=== PATIENT | female | born 1960 | race Caucasian/White ===

== ENCOUNTER → 2025-01-23 14:41 | Outpatient (CLI) | payer OTHER, SELFPAY ==
--- NOTE | 2025-01-23 14:42 | DI.RAD.S_ITS ---
PROCEDURE: XR KNEE RT 3V INDICATIONS: rt knee pain and swelling TECHNIQUE: 3 views of the knee were acquired. COMPARISON: None. FINDINGS: Bones: No fractures or dislocations. No suspicious bony lesions. Tricompartmental joint space narrowing with associated osteophytosis. Soft tissues: Small joint effusion. No suspicious soft tissue calcifications. IMPRESSION: [id number] tricompartmental osteoarthritis. Kellgren-Andrea Grade 2. Small knee joint effusion. Dictated by: Jhon Brandt M.D. on 01/23/2025 at 17:20 Approved by: Jhon Brandt M.D. on 01/23/2025 at 17:20
[2025-01-23 16:01] LABS: Add Manual Diff / Slide Review NO; Basophils Absolute Auto 100 /uL (0-100); Basophils Percent Auto 1.3 % (0-2); Eosinophils Absolute Auto 300 /uL (0-450); Hematocrit 41.2 % (36-46); Hemoglobin 13.7 g/dL (12.0-16.0); Lymphocytes Absolute Auto 2200 /uL (1100-4500); Lymphocytes Percent Auto 34.2 % (25-40); Mean Corpuscular HGB Conc 33.2 % (30-36); Mean Corpuscular Hemoglobin 29.2 PG (26-34); Mean Corpuscular Volume 88.1 fL (80-100); Monocytes Absolute Auto 500 /uL (0-900); Monocytes Percent Auto 7.7 % (3-14); Neutrophils Absolute Auto 3400 /uL (1500-7000); Neutrophils Percent Auto 51.8 % (50-75); Platelet Count 230 X10^3/uL (150-400); Red Blood Cell Count 4.68 X10^6/uL (4.0-5.2); Red Cell Distribution Width 13.8 % (11.6-14.8); White Blood Cell Count 6.5 X10^3/uL (4.5-11.0)
[2025-01-23 16:05] LABS: Hemoglobin A1C% w Est Avg Glu 5.4 % (4.0-6.0)
[2025-01-23 16:16] LABS: Alanine Aminotransferase 29 IU/L (<35); Albumin 4.8 g/dL (3.5-5.0); Albumin Globulin Ratio 1.7 (1.0-2.8); Alkaline Phosphatase 53 U/L (38-126); Aspartate Aminotransferase 35 IU/L (14-36); BUN Creatinine Ratio 25.6 (6-22); Bilirubin Total 0.6 mg/dL (0.2-1.3); Blood Urea Nitrogen 20 mg/dL (7-17); Calcium 9.7 mg/dL (8.4-10.2); Carbon Dioxide 26 mmol/L (22-32); Chloride 106 mmol/L (98-107); Cholesterol 318 mg/dL (140-199); Estimated Glomerular Filt Rate > 60 mL/min (>60); Globulin 2.8 g/dL (1.7-4.1); Glucose 89 mg/dL (70-99); HDL Cholesterol 70 mg/dL (40-60); HEMOLYSIS < 15 (0-50); LDL Cholesterol Calculated 202 mg/dL (<100); Potassium 3.7 mmol/L (3.4-5.1); Sodium 142 mmol/L (137-145); Total Protein 7.6 g/dL (6.3-8.2); Triglycerides 230 mg/dL (35-150)
[2025-01-23 16:50] LABS: TSH w/ Reflex to FT4 2.42 uIU/mL (0.47-4.68)
== END ==
PROVIDERS: PCP Nurse Practitioner Family; Referring Provider Nurse Practitioner Family; Visit Provider Nurse Practitioner Family
DX: M17.11 Unilateral primary osteoarthritis, right knee (principal); M25.461 Effusion, right knee; R73.03 Prediabetes; E66.3 Overweight; E78.5 Hyperlipidemia, unspecified; M25.561 Pain in right knee
CPT/HCPCS: 36415; 73562; 80053; 80061; 83036; 84443; 85025

== ENCOUNTER 2025-05-13 16:15 | Outpatient (RCR) | payer OTHER, SELFPAY ==
--- NOTE | 2025-03-26 18:20 | PT.OIE ---
Current Diagnoses Pain in right knee (03/26/25) Past Medical History (Last Updated 01/24/25 @ 15:45 by ROB Perales) Allergies BPPV (benign paroxysmal positional vertigo) Chicken pox (~1968) Chronic back pain Fractures (~2010) Hay fever Headache History of breast cancer (~2006) History of prediabetes Hyperlipidemia Left shoulder pain Mumps (~1969) Overweight (BMI 25.0-29.9) Patient new to provider Prediabetes Right knee pain Risk of myocardial infarction or stroke 7.5% or greater in next 10 years Shoulder pain (~2022) Sinusitis Tinnitus of both ears Vertigo Vision disorder Past Surgical History (Last Reviewed 04/03/24 @ 08:05 by DELANEY Kunz) Anesthesia History of ankle surgery (~02/06/11) S/P lumpectomy, right breast (~08/23/07) Visit Care Team Role Provider Type ROB Perales Attending Provider Advanced Pump Assembler Family Provider Primary Care Provider Referring Provider Specialty: Family Practice Address: [address] [place] [address], [id number] Phone: Fax: Email: [email or web address] Physical Therapy Initial Evaluation PT-OP-A Visit Information Start: 03/20/25 16:57 Freq: Status: Active Protocol: Document 03/26/25 13:52 [facility] (Rec: 03/26/25 14:38 [facility] [id number]) Out-Patient Physical Therapy Visit Information Visit Information Visit Type Initial Evaluation Visit Start Time 13:52 Visit Stop Time 14:33 Visit Number 1 Number of FRONT END JAVA DEVELOPER Visits 0 PT-OP-B Current Condition Start: 03/20/25 16:57 Freq: Status: Active Protocol: Document 03/26/25 13:52 [facility] (Rec: 03/26/25 14:38 [facility] [id number]) Current Condition History of Current Condition Onset Date Dec Current Complaints med R knee pain History of Current Pt reports since aug knee started hurting with no known Condition issue. It progressively getting worse. Has arthritis per xray. Has knee pain occasionally before this. It is on the med aspect of knee. Can still kneel w/o pain. worsens: walking, running, beach walking can irritate, pushing inward w/leg to move things, driving for a while, squatting, getting up from ground or stairs (has to brace w/UEs to dec pain). If stays btwn 3-5k steps, swelling and pain is ok but if gets up to 7k then takes meds and ices. 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 tried biking and it went okay. back pain that is constant. Treatment Goals Patient/Caregiver painfree, resume walks(typical is about 3 miles) and Goals hiking with good pace, be able to get up from ground w/ o pushing off or w/pain PT-OP-C Subjective Start: 03/20/25 16:57 Freq: Status: Active Protocol: Document 03/26/25 13:52 [facility] (Rec: 03/26/25 14:38 [id number] Patient Questionnaires Lower Extremity Functional Scale LEFS Score 24 PT-OP-D Balance Start: 03/20/25 16:57 Freq: Status: Active Protocol: Document 03/26/25 13:52 [facility] (Rec: 03/26/25 14:38 [id number] Balance Tests Single Limb Standing Single Limb- Right inc deviation , pain 24 sec Single Limb- Left >30 sec PT-OP-G Mobility & Gait Start: 03/20/25 16:57 Freq: Status: Active Protocol: Document 03/26/25 13:52 [facility] (Rec: 03/26/25 14:38 [id number] OP Gait Assessment Comments Gait Comments Dec stance time RLE, dec knee ext PT-OP-J Posture/Palpation/Skin Start: 03/20/25 16:57 Freq: Status: Active Protocol: Document 03/26/25 13:52 [facility] (Rec: 03/26/25 14:38 [id number] Posture Evaluation Comments Posture Comments dec R knee ext, L rotation of trunk, R iliac crest higher, equal greater trochanter, R >L femur IR, tibia ER PT-OP-K Range of Motion Start: 03/20/25 16:57 Freq: Status: Active Protocol: Document 03/26/25 13:52 [facility] (Rec: 03/26/25 14:38 [id number]) Knee Goniometric Range of Motion Knee Left Flexion Active ( 136 degrees) Hyper-Extension 5 Active Right Flexion Active ( 128 degrees) Extension Active ( 5 degrees) Comments pain both directions PT-OP-L Special Tests Start: 03/20/25 16:57 Freq: Status: Active Protocol: Document 03/26/25 13:52 [facility] (Rec: 03/26/25 14:38 [facility] [id number]) Special Tests Knee Special Tests Tyree Comments R>L thessely Comments positive R apley Comments neg R ligamentous screen Comments lachmans, PCL, varus, valgus neg Quinn Test Comments positive med meniscus SLR Comments WNL B slump Comments neg B joint line Comments positive med jt line tenderness Davey Chondromalacia Comments couldn't test d/t pain w/attempt to do med patellar glide PT-OP-M Strength Start: 03/20/25 16:57 Freq: Status: Active Protocol: Document 03/26/25 13:52 [facility] (Rec: 03/26/25 14:38 [facility] [id number]) Hip Strength Hip Manual Muscle Testing Right Flexion (L2) 3+ Fair+ Extension (S1) 3+ Fair+ Abduction 3+ Fair+ Adduction 4- Good- External Rotation 3+ Fair+ Internal Rotation 3+ Fair+ Comments pain knee flex, ER Left Flexion (L2) 4 Good Extension (S1) 5 Normal Abduction 5 Normal Adduction 5 Normal External Rotation 4 Good Internal Rotation 4 Good Knee Strength Knee Manual Muscle Testing Right Flexion (S2) 4- Good- Extension (L3) 4- Good- Comments pain ext Left Flexion (S2) 5 Normal Extension (L3) 5 Normal Ankle/Foot Strength Ankle and Foot Manual Muscle Testing Right Dorsiflexion (L4) 5 Normal Plantarflexion (S1) 5 Normal Comments 20 heel raises w/more difficulty and pain down rlE and into knee Left Dorsiflexion (L4) 5 Normal Plantarflexion (S1) 5 Normal Comments 20 heel raises PT-OP-Q Treatments Start: 03/20/25 16:57 Freq: Status: Active Protocol: Document 03/26/25 13:52 [facility] (Rec: 03/26/25 14:38 [facility] [id number]) Therapeutic Exercises Sitting Exercises HS Sitting Exercise curl Name Side right Resistance orange band Reps/Minutes 15 Standing Exercises stretch Standing Exercise quad on step Name Side right Reps/Minutes 60 sec sidestep Side bilateral Equipment Used orange band Reps/Minutes 20ft ea Self-Care/Home Management Treatment Education Other Education 9 min: edu how mobility of innominate, hip and ankle can affect knee pain. edu re: testing that meniscus may be injured but most evidence shows PT can help with that. Edu that plan will be painfree exercise to progress strength and mobility. PT-OP-T Assessment and Plan Start: 03/20/25 16:57 Freq: Status: Active Protocol: Document 03/26/25 13:52 [facility] (Rec: 03/26/25 14:38 [facility] [id number]) Physical Therapy Assessment Rehab Potential Rehabilitation Good Potential Evaluation Complexity Number of Personal 3 or More Factors/ Comorbidities Number of Body 4 or More Systems Impaired Clinical Evolving Presentation at Evaluation Impairments Impairments Activity Tolerance,Balance,Edema,Functional Activities, Functional Mobility,Gait,Pain,Posture,ROM,Soft Tissue Mobility,Strength,Transfers Goals strength Short Term Goal (STG Pt will be indep w/HEP ) STG Duration 05/03 Skilled Nursing Goal (LTG) pt will score at least 4+/5 on all BLE MMT in order to allow for greater ease with functional activities. LTG Duration 06/04 ROM Short Term Goal (STG Pt will have full knee ext to at least 0 to allow for ) improved gait mechanics STG Duration 04/26 Tobacco Flavorer Goal (LTG) Pt will have ROM of R knee equal to that of L knee w/o inc pain to allow pt to do ADLs and stairs w/o inc pain LTG Duration 06/04 activity Short Term Goal (STG Pt will be able to get up from the ground w/o pushing ) on something w/o inc pain to allow her to return to her typical job duties w/o inc pain STG Duration 05/05 Tobacco Flavorer Goal (LTG) Pt will report being able to resume 3 mile walks on different terrain w/o inc pain LTG Duration 06/04 Assessment Summary Assessment Pt presents w/R knee pain that started in August w/o specific incident and has gotten worse. pt is typically active with walking and hiking, but has been unable d/ t inc pain in her knee. She does have dec R knee ROM, overall RLE weakness, innominate dysfunction, dec RLE balance, and gait deviations all likely related to her knee pain. She was positive for 3/4 meniscal tests today indicating possible meniscus injury. She would benefit from skilled PT to improve movement mechanics in order to return to typical activities w/o inc pain. Physical Therapy Plan Frequency and Duration Frequency of 2x/Week Treatment Duration of 10 treatment (weeks) Plan of Care Start 03/26/25 Date Plan of Care End 06/04/25 Date Therapeutic Interventions Therapeutic Balance Training,Gait Training,Home Exercise Program, Interventions Joint Mobilizations,Manual Therapy,Neuromuscular Re- education,Patient/Caregiver Education,Self-Care/Home Management,Soft Tissue Mobilization,Therapeutic Activities,Therapeutic Exercises Modalities Cold Pack/Ice Massage,Electric Stimulation,Hot Packs Next Visit Focus/Plan Next Note Type Treatment Note Next Visit Plan innominate mobility, STM to quads, knee mobs, work on knee tracking, review HEP, work on hip rotational strength, balance DL activities initially
--- NOTE | 2025-03-26 18:20 | PT.OPPOC ---
Physical, Occupational & Speech Therapy At [facility] Current Diagnoses Pain in right knee (03/26/25) Visit Care Team Role Provider Type ROB Perales Attending Provider Advanced Guide Visitor Family Provider Primary Care Provider Referring Provider Specialty: Family Practice Address: [address] [place] [address], [address] Phone: Fax: Email: [email or web address] Plan Of Care PT-OP-B Current Condition Start: 03/20/25 16:57 Freq: Status: Active Protocol: Document 03/26/25 13:52 [facility] (Rec: 03/26/25 14:38 [facility] [id number]) Current Condition History of Current Condition Onset Date Aug Current Complaints med R knee pain History of Current Pt reports since dec knee started hurting with no known Condition issue. It progressively getting worse. Has arthritis per xray. Has knee pain occasionally before this. It is on the med aspect of knee. Can still kneel w/o pain. worsens: walking, running, beach walking can irritate, pushing inward w/leg to move things, driving for a while, squatting, getting up from ground or stairs (has to brace w/UEs to dec pain). If stays btwn 3-5k steps, swelling and pain is ok but if gets up to 7k then takes meds and ices. 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 tried biking and it went okay. back pain that is constant. Treatment Goals Patient/Caregiver painfree, resume walks(typical is about 3 miles) and Goals hiking with good pace, be able to get up from ground w/ o pushing off or w/pain PT-OP-T Assessment and Plan Start: 03/20/25 16:57 Freq: Status: Active Protocol: Document 03/26/25 13:52 [facility] (Rec: 03/26/25 14:38 [facility] [id number]) Physical Therapy Assessment Rehab Potential Rehabilitation Good Potential Evaluation Complexity Number of Personal 3 or More Factors/ Comorbidities Number of Body 4 or More Systems Impaired Clinical Evolving Presentation at Evaluation Impairments Impairments Activity Tolerance,Balance,Edema,Functional Activities, Functional Mobility,Gait,Pain,Posture,ROM,Soft Tissue Mobility,Strength,Transfers Goals strength Short Term Goal (STG Pt will be indep w/HEP ) STG Duration 05/03 [facility] Goal (LTG) pt will score at least 4+/5 on all BLE MMT in order to allow for greater ease with functional activities. LTG Duration 06/04 ROM Short Term Goal (STG Pt will have full knee ext to at least 0 to allow for ) improved gait mechanics STG Duration 04/26 [facility] Goal (LTG) Pt will have ROM of R knee equal to that of L knee w/o inc pain to allow pt to do ADLs and stairs w/o inc pain LTG Duration 06/04 activity Short Term Goal (STG Pt will be able to get up from the ground w/o pushing ) on something w/o inc pain to allow her to return to her typical job duties w/o inc pain STG Duration 05/05 [facility] Goal (LTG) Pt will report being able to resume 3 mile walks on different terrain w/o inc pain LTG Duration 06/04 Assessment Summary Assessment Pt presents w/R knee pain that started in August w/o specific incident and has gotten worse. pt is typically active with walking and hiking, but has been unable d/ t inc pain in her knee. She does have dec R knee ROM, overall RLE weakness, innominate dysfunction, dec RLE balance, and gait deviations all likely related to her knee pain. She was positive for 3/4 meniscal tests today indicating possible meniscus injury. She would benefit from skilled PT to improve movement mechanics in order to return to typical activities w/o inc pain. Physical Therapy Plan Frequency and Duration Frequency of 2x/Week Treatment Duration of 10 treatment (weeks) Plan of Care Start 03/26/25 Date Plan of Care End 06/04/25 Date Therapeutic Interventions Therapeutic Balance Training,Gait Training,Home Exercise Program, Interventions Joint Mobilizations,Manual Therapy,Neuromuscular Re- education,Patient/Caregiver Education,Self-Care/Home Management,Soft Tissue Mobilization,Therapeutic Activities,Therapeutic Exercises Modalities Cold Pack/Ice Massage,Electric Stimulation,Hot Packs Next Visit Focus/Plan Next Note Type Treatment Note Next Visit Plan innominate mobility, STM to quads, knee mobs, work on knee tracking, review HEP, work on hip rotational strength, balance DL activities initially Plan of Care Dates Plan of Care Start Date 03/26/25 Plan of Care End Date 06/04/25 Electronically Signed by: Lisa Ohara, PT 03/26/25 5118 If you are in agreement with this Plan of Care, please return a signed and dated copy. I have reviewed this Plan of Care and certify that the skilled therapy services above are required to meet the patient?s needs. Physician Signature Date Printed Name and Credentials Clinical Instructor Signature Printed Name and Credentials
--- NOTE | 2025-04-02 17:06 | PT.OTN ---
Current Diagnoses Pain in right knee (04/02/25) Physical Therapy Treatment Note PT-OP-A Visit Information Start: 03/20/25 16:57 Freq: Status: Active Protocol: Document 04/02/25 10:55 [facility] (Rec: 04/02/25 17:06 [facility] Laptop) Out-Patient Physical Therapy Visit Information Visit Information Visit Type Treatment Note Visit Start Time 10:55 Visit Stop Time 11:35 Visit Number 2 Number of CAREGIVER ASSISTED LIVING Visits 1 Evaluation Information Evaluation Date 03/26/25 Precautions Precautions latex allergy PT-OP-B Current Condition Start: 03/20/25 16:57 Freq: Status: Active Protocol: Document 03/26/25 13:52 [facility] (Rec: 03/26/25 14:38 [facility] [id number]) Current Condition History of Current Condition Onset Date Aug Current Complaints med R knee pain History of Current Pt reports since aug knee started hurting with no known Condition issue. It progressively getting worse. Has arthritis per xray. Has knee pain occasionally before this. It is on the med aspect of knee. Can still kneel w/o pain. worsens: walking, running, beach walking can irritate, pushing inward w/leg to move things, driving for a while, squatting, getting up from ground or stairs (has to brace w/UEs to dec pain). If stays btwn 3-5k steps, swelling and pain is ok but if gets up to 7k then takes meds and ices. 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 tried biking and it went okay. back pain that is constant. Treatment Goals Patient/Caregiver painfree, resume walks(typical is about 3 miles) and Goals hiking with good pace, be able to get up from ground w/ o pushing off or w/pain PT-OP-C Subjective Start: 03/20/25 16:57 Freq: Status: Active Protocol: Document 04/02/25 10:55 [facility] (Rec: 04/02/25 17:06 [facility] Laptop) OP-PT Subjective Patient Comments Patient Comments Smita reports 2/10 R knee pain currently and most of the time. She's been doing home ex's daily except for when she did easier hike at [email or web address] and got 14,000 steps. She used trekking poles at times and afterwards used ice, red light wrap and a device that compresses around the knee with air. Her knee hurts with some gardening activities and sometimes getting into quad stretch. She 's not sure she's doing seated curls correctly. PT-OP-D Balance Start: 03/20/25 16:57 Freq: Status: Active Protocol: Document 03/26/25 13:52 [facility] (Rec: 03/26/25 14:38 [facility] [id number]) Balance Tests Single Limb Standing Single Limb- Right inc deviation , pain 24 sec Single Limb- Left >30 sec PT-OP-G Mobility & Gait Start: 03/20/25 16:57 Freq: Status: Active Protocol: Document 03/26/25 13:52 [facility] (Rec: 03/26/25 14:38 [id number] OP Gait Assessment Comments Gait Comments Dec stance time RLE, dec knee ext PT-OP-J Posture/Palpation/Skin Start: 03/20/25 16:57 Freq: Status: Active Protocol: Document 03/26/25 13:52 [facility] (Rec: 03/26/25 14:38 [facility] [id number]) Posture Evaluation Comments Posture Comments dec R knee ext, L rotation of trunk, R iliac crest higher, equal greater trochanter, R >L femur IR, tibia ER PT-OP-K Range of Motion Start: 03/20/25 16:57 Freq: Status: Active Protocol: Document 03/26/25 13:52 [facility] (Rec: 03/26/25 14:38 [facility] [id number]) Knee Goniometric Range of Motion Knee Left Flexion Active ( 136 degrees) Hyper-Extension 5 Active Right Flexion Active ( 128 degrees) Extension Active ( 5 degrees) Comments pain both directions PT-OP-L Special Tests Start: 03/20/25 16:57 Freq: Status: Active Protocol: Document 03/26/25 13:52 [facility] (Rec: 03/26/25 14:38 [facility] [id number]) Special Tests Knee Special Tests Tyree Comments R>L thessely Comments positive R apley Comments neg R ligamentous screen Comments lachmans, PCL, varus, valgus neg Quinn Test Comments positive med meniscus SLR Comments WNL B slump Comments neg B joint line Comments positive med jt line tenderness Davey Chondromalacia Comments couldn't test d/t pain w/attempt to do med patellar glide PT-OP-M Strength Start: 03/20/25 16:57 Freq: Status: Active Protocol: Document 03/26/25 13:52 [facility] (Rec: 03/26/25 14:38 [facility] [id number]) Hip Strength Hip Manual Muscle Testing Right Flexion (L2) 3+ Fair+ Extension (S1) 3+ Fair+ Abduction 3+ Fair+ Adduction 4- Good- External Rotation 3+ Fair+ Internal Rotation 3+ Fair+ Comments pain knee flex, ER Left Flexion (L2) 4 Good Extension (S1) 5 Normal Abduction 5 Normal Adduction 5 Normal External Rotation 4 Good Internal Rotation 4 Good Knee Strength Knee Manual Muscle Testing Right Flexion (S2) 4- Good- Extension (L3) 4- Good- Comments pain ext Left Flexion (S2) 5 Normal Extension (L3) 5 Normal Ankle/Foot Strength Ankle and Foot Manual Muscle Testing Right Dorsiflexion (L4) 5 Normal Plantarflexion (S1) 5 Normal Comments 20 heel raises w/more difficulty and pain down rlE and into knee Left Dorsiflexion (L4) 5 Normal Plantarflexion (S1) 5 Normal Comments 20 heel raises PT-OP-Q Treatments Start: 03/20/25 16:57 Freq: Status: Active Protocol: Document 04/02/25 10:55 [facility] (Rec: 04/02/25 17:06 [facility] Laptop) Therapeutic Exercises Sitting Exercises HS Sitting Exercise curl Name Side right Resistance orange band Reps/Minutes 15 Comments cues for LLE 90/90, slower pacing R Standing Exercises TKE Standing Exercise terminal knee extension Name Side right Resistance Lvl 2 orange Equipment Used anchored at training stairs Reps/Minutes x5, 10 x5 sec hold (2 breathcyles) Comments 2/10 pain increases to 3-4/10 stretch Standing Exercise quad on step Name Side right Equipment Used edu for strap or towel when not in pants Reps/Minutes 60 sec Comments cues for maintaining LE alignment sidestep Side bilateral Equipment Used orange band around ankles Reps/Minutes 2 x 15ft ea Comments cues for smaller step and slower pacing Therapeutic Activity Therapeutic Activity Sleeping Ergonomics Name R knee pain with sidelying Comments Pt demos staggered flexed legs without pillow supports; reports tried a pillow once which may have been too thick. Edu for pillow supports extending between knees and ankles with positive feedback response, painfree. Also edu to consider side support for spinal alignment - HO given. Gardening Name Pt reports R knee pain weeding Comments -Pt kurt asymmetrical squat lacking hip hinge for pulling weeds and twisting at trunk to set aside. Edu to pt for using knee pad and weeding in tall kneel. Discussed placing pad in visible and accessible area. -Pt samuelos using long-handles standing thin film technician involving placing one leg on and pushing down, and states she switched to L leg when needed but still painful. Edu to pt to try to use both legs on ground for now, and pt agrees partner can use this tool instead. Manual Therapy Treatment Consent Patient gave verbal Yes consent for manual treatment Soft Tissue Mobilization R quads Body Location Quads, ITB Mobilization Type Rolling Intensity/Depth Moderate Body Position Hooklying Comments palpable tension throughout, lateral>medial. Verbal edu for self-STM w/ rolling pin. Joint Mobilizations R patella Direction sup<>inf, med<>lat Grade II Body Position Supine Self-Care/Home Management Treatment Education Patient Education Body Mechanics,Home Exercise Program,Joint Protection, Pain Management Other Education Brief edu to pt regarding option to adjust trekking pole height as needed for inclines/declines - 1 min. PT-OP-T Assessment and Plan Start: 03/20/25 16:57 Freq: Status: Active Protocol: Document 04/02/25 10:55 [facility] (Rec: 04/02/25 17:06 [facility] Laptop) Physical Therapy Assessment Goals strength Short Term Goal (STG Pt will be indep w/HEP ) STG Duration 05/03 Longterm Goal (LTG) pt will score at least 4+/5 on all BLE MMT in order to allow for greater ease with functional activities. LTG Duration 06/04 ROM Short Term Goal (STG Pt will have full knee ext to at least 0 to allow for ) improved gait mechanics STG Duration 04/26 Longterm Goal (LTG) Pt will have ROM of R knee equal to that of L knee w/o inc pain to allow pt to do ADLs and stairs w/o inc pain LTG Duration 06/04 activity Short Term Goal (STG Pt will be able to get up from the ground w/o pushing ) on something w/o inc pain to allow her to return to her typical job duties w/o inc pain STG Duration 05/05 Longterm Goal (LTG) Pt will report being able to resume 3 mile walks on different terrain w/o inc pain LTG Duration 06/04 Assessment Summary Assessment Smita's R knee pain increases from 2 start of session to 3-410 with R TKE Lvl 2, which improves to 2/10 end of session following manual therapy. 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 I/s in sidelying for sleep with pillow supports painfree, HO given. Cues needed to avoid abducting flexed knee for quad stretch which she confirms causes pain at times. Palpable tension to R quads improves with manual therapy and she is edu to use rolling pin for self-STM and continue icing as needed. Emphasis on painfree range with HEP review.
--- NOTE | 2025-04-09 14:03 | PT.OTN ---
Current Diagnoses Pain in right knee (04/09/25) Physical Therapy Treatment Note PT OP: Lower Back/Lower Extremity Start: 04/09/25 13:07 Freq: Status: Active Protocol: Document 04/09/25 13:07 [facility] (Rec: 04/09/25 14:03 [facility] [id number]) Out-Patient Physical Therapy Visit Information Visit Information Visit Type Treatment Note Visit Start Time 13:05 Visit Stop Time 13:45 Visit Number 3 Number of CROP GRAIN OR LIVESTOCK FARM MANAGER Visits 0 Progress Note Due 04/25/25 Precautions Precautions latex allergy OP-PT Subjective Patient Comments Patient Comments Pt reports knee feels tired after exercises Therapeutic Exercises Supine Exercises bridge Supine Exercise Name SL Side bilateral Reps/Minutes 8 Comments cues segmental slow up/down core Supine Exercise Name DL flex isometric w/DF Side bilateral Reps/Minutes 30 sec Sidelying Exercises reverse clamshell Side bilateral Resistance orange band Reps/Minutes 12 clamshell Side bilateral Equipment Used orange band Reps/Minutes 12 Comments cues not to roll Sitting Exercises HS Sitting Exercise curl Name Side bilateral Resistance orange band Reps/Minutes 15 Comments cues for LLE 90/90, slower pacing R Standing Exercises sit to stand Side bilateral Equipment Used orange band at knees Reps/Minutes 15 Comments cues taps tap abd Side right Resistance orange Reps/Minutes 6 Comments stopped d/t pain TKE Standing Exercise terminal knee extension Name Side right Resistance Lvl 2 orange Reps/Minutes 5 Comments stopped d/t pain stretch Standing Exercise quad hand grab Name Side right Reps/Minutes 30 sec sidestep Side bilateral Equipment Used orange band around ankles Reps/Minutes 2 x 10ft ea Comments min cues needed Manual Therapy Treatment Consent Patient gave verbal Yes consent for manual treatment Soft Tissue Mobilization HS Body Location R med Intensity/Depth Moderate Comments rolling and cupping w/active HS stretch ITB Body Location R Mobilization Type Rolling Intensity/Depth Moderate R quads Body Location R Mobilization Type Rolling Intensity/Depth Moderate Comments quads rolling and med knee cupping w/flex/ext Joint Mobilizations tibiofemoral Comments AP tibia c/r and AP femur c/r R patella Direction sup<>inf, med<>lat Grade III Body Position Supine Physical Therapy Assessment Goals strength Short Term Goal (STG Pt will be indep w/HEP ) STG Duration 05/03 Sales Representative Consultant Goal (LTG) pt will score at least 4+/5 on all BLE MMT in order to allow for greater ease with functional activities. LTG Duration 06/04 ROM Short Term Goal (STG Pt will have full knee ext to at least 0 to allow for ) improved gait mechanics STG Duration 04/26 Snf Goal (LTG) Pt will have ROM of R knee equal to that of L knee w/o inc pain to allow pt to do ADLs and stairs w/o inc pain LTG Duration 06/04 activity Short Term Goal (STG Pt will be able to get up from the ground w/o pushing ) on something w/o inc pain to allow her to return to her typical job duties w/o inc pain STG Duration 05/05 Snf Goal (LTG) Pt will report being able to resume 3 mile walks on different terrain w/o inc pain LTG Duration 06/04 Assessment Summary Assessment Pt did well with exercises w/o inc pain w/exercises except TKE and abd which were stopped. She did well with manual w/improved knee ext after. Physical Therapy Plan Frequency and Duration Frequency of 2x/Week Treatment Duration of 10 treatment (weeks) Plan of Care Start 03/26/25 Date Plan of Care End 06/04/25 Date Next Visit Focus/Plan Next Note Type Treatment Note Next Visit Plan innominate mobility, STM to quads, knee mobs, work on knee tracking, review HEP, work on hip rotational strength, balance DL activities initially
--- NOTE | 2025-04-16 12:34 | PT.OTN ---
Current Diagnoses Pain in right knee (04/16/25) Physical Therapy Treatment Note PT OP: Lower Back/Lower Extremity Start: 04/09/25 13:07 Freq: Status: Active Protocol: Document 04/16/25 11:32 [facility] (Rec: 04/16/25 12:34 [facility] [id number]) Therapeutic Exercises Supine Exercises quad set Side right Equipment Used rolled towel Reps/Minutes 5 sec x10 bridge Supine Exercise Name SL w/opp LE straight Side bilateral Reps/Minutes 8 Comments cues segmental slow up/down Sidelying Exercises reverse clamshell Side bilateral Resistance robinson band Reps/Minutes 12 Comments cues for alignment and no pelvis roll clamshell Side bilateral Equipment Used robinson band Reps/Minutes 12 Comments no cues needed today except initially Standing Exercises sit to stand Side bilateral Equipment Used [place]inson band at knees Reps/Minutes 15 Comments cues taps tap and foot/knee alignment sidestep Standing Exercise in mini squat Name Side bilateral Equipment Used robinson band around knees Reps/Minutes 2 x 10ft ea Comments min cues for knee over ankle Manual Therapy Treatment Consent Patient gave verbal Yes consent for manual treatment Soft Tissue Mobilization calf Body Location R Mobilization Type Rolling Intensity/Depth Moderate R quads Body Location R patellar tendon Mobilization Type Rolling Joint Mobilizations hip Comments R hip on axis c/r and inf glide c/r innominate Comments caudal R w/LTR, ER c/r, abd c/r sacrum Comments caudal w/LTR tibfib Comments AP fib proximal w/APs tibiofemoral Comments AP tibia c/r and AP femur c/r R patella Direction sup<>inf, med<>lat Grade III Body Position Supine Physical Therapy Assessment Goals strength Short Term Goal (STG Pt will be indep w/HEP ) STG Duration 05/03 Long-Term Goal (LTG) pt will score at least 4+/5 on all BLE MMT in order to allow for greater ease with functional activities. LTG Duration 06/04 ROM Short Term Goal (STG Pt will have full knee ext to at least 0 to allow for ) improved gait mechanics STG Duration 04/26 Long-Term Goal (LTG) Pt will have ROM of R knee equal to that of L knee w/o inc pain to allow pt to do ADLs and stairs w/o inc pain LTG Duration 06/04 activity Short Term Goal (STG Pt will be able to get up from the ground w/o pushing ) on something w/o inc pain to allow her to return to her typical job duties w/o inc pain STG Duration 05/05 Long-Term Goal (LTG) Pt will report being able to resume 3 mile walks on different terrain w/o inc pain LTG Duration 06/04 Assessment Summary Assessment no inc pain with exercises. Improved hip abd and ER w/ less hard end feel with manual care. Physical Therapy Plan Frequency and Duration Frequency of 2x/Week Treatment Duration of 10 treatment (weeks) Plan of Care Start 03/26/25 Date Plan of Care End 06/04/25 Date Next Visit Focus/Plan Next Note Type Treatment Note Next Visit Plan innominate mobility, STM to quads, knee mobs, work on knee tracking, review HEP, work on hip rotational strength, balance DL activities initially
--- NOTE | 2025-04-23 13:00 | PT.OTN ---
Current Diagnoses Pain in right knee (04/23/25) Physical Therapy Treatment Note PT OP: Lower Back/Lower Extremity Start: 04/09/25 13:07 Freq: Status: Active Protocol: Document 04/23/25 10:50 [facility] (Rec: 04/23/25 11:39 [facility]) Out-Patient Physical Therapy Visit Information Visit Information Visit Type Treatment Note Visit Start Time 10:50 Visit Stop Time 11:32 Visit Number 5 Number of MAINTAINER PLANT Visits 1 Progress Note Due 04/25/25 Precautions Precautions latex allergy OP-PT Subjective Patient Comments Patient Comments Pt reports R knee pain 2-11/11. Has added pillow supports with sleeping and that has helped. Therapeutic Exercises Supine Exercises hip flexor stretch Supine Exercise Name modified Tyree position - added to HEP Side right Equipment Used hi-lo table Reps/Minutes 60 min w/ STM to R quad Comments painfree, observably improved ROM, positive feedback response quad set Side right Equipment Used rolled towel, 1/2 foam, full foam Reps/Minutes 5 sec x10>full foam roller 3 sec x10 Comments pain along medial jt line and inferior to patella, improves w/full foam 3SH bridge Supine Exercise Name SL w/opp LE straight Side bilateral Reps/Minutes x10, x5 Comments cues segmental slow up/down, breath core Supine Exercise Name DL flex isometric w/DF: straight and diagonal Side bilateral Reps/Minutes 2 x30 sec ea Comments painfree; vc breath Sitting Exercises Hamstring Stretch Side bilateral Reps/Minutes 2x30s ea Standing Exercises sit to stand Side bilateral Equipment Used [place] band at knees Reps/Minutes 15 Comments cues taps tap and foot/knee alignment stretch Standing Exercise 1. quad hand grab 2. DL calf stretch on [place] Name Side right Reps/Minutes 1. 30 sec 2. 60 sec Manual Therapy Treatment Consent Patient gave verbal Yes consent for manual treatment Soft Tissue Mobilization HS Body Location R med Intensity/Depth Moderate Comments rolling w/active and passive HS stretch ITB Body Location R Mobilization Type Cross-Friction,Rolling Intensity/Depth Moderate Comments circular strokes distal to proximal R quads Body Location Quads, patellar tendon Mobilization Type Rolling Intensity/Depth Moderate Joint Mobilizations R patella Direction sup<>inf, med<>lat Grade II Body Position Supine Neuro Re-Education Treatment Balance Activities Tilt Board Details DL balance Comments a/p: balance, weightshifting x10, cues for gluteal activaiton and upright posture with posterior weightshift m/l: balance, weightshifts dc'd d/t pt c/o R knee pain along medial jt line. BOSU Comments Dome: DL balance, mini squats AUDIOVISUAL PRODUCTION SPECIALIST prn x6; perturbations to body in all directions at pelvis/shoulders Flat: balance, mini squats AUDIOVISUAL PRODUCTION SPECIALIST prn x6, perturbations to BOSU Physical Therapy Assessment Goals strength Short Term Goal (STG Pt will be indep w/HEP ) STG Duration 05/03 Bag Inspector Goal (LTG) pt will score at least 4+/5 on all BLE MMT in order to allow for greater ease with functional activities. LTG Duration 06/04 ROM Short Term Goal (STG Pt will have full knee ext to at least 0 to allow for ) improved gait mechanics STG Duration 04/26 Bag Inspector Goal (LTG) Pt will have ROM of R knee equal to that of L knee w/o inc pain to allow pt to do ADLs and stairs w/o inc pain LTG Duration 06/04 activity Short Term Goal (STG Pt will be able to get up from the ground w/o pushing ) on something w/o inc pain to allow her to return to her typical job duties w/o inc pain STG Duration 05/05 Nursing Home Goal (LTG) Pt will report being able to resume 3 mile walks on different terrain w/o inc pain LTG Duration 06/04 Assessment Summary Assessment Smita presents with baseline 2-3/10 R knee pain which is unchanged end of session. She reports forgetting to perform quad sets and has increased R knee pain performing which improves slightly with modification from towel roll to full foam roller. Double leg balance activities are initiated which she tolerates in anteroposterior stance of neutral base of support, but mediolateral weight shifting on tilt board is discontinued due to sharp pain in R knee along medial joint line while R lower extremity alignment is maintained, which resolves with cessation of activity. Physical Therapy Plan Frequency and Duration Frequency of 2x/Week Treatment Duration of 10 treatment (weeks) Plan of Care Start 03/26/25 Date Plan of Care End 06/04/25 Date Next Visit Focus/Plan Next Note Type Treatment Note Next Visit Plan innominate mobility, STM to quads, knee mobs, work on knee tracking, review HEP, work on hip rotational strength, balance DL activities initially
--- NOTE | 2025-04-30 18:23 | PT.OPPN ---
Current Diagnoses Pain in right knee (04/30/25) Physical Therapy Progress Note PT OP: Lower Back/Lower Extremity Start: 04/09/25 13:07 Freq: Status: Active Protocol: Document 04/30/25 16:12 [facility] (Rec: 04/30/25 18:22 [facility] [id number]) Out-Patient Physical Therapy Visit Information Visit Information Visit Type Progress Note Visit Start Time 16:20 Visit Stop Time 17:00 Visit Number 6 Number of PSYCHOLOGY CLINICIAN Visits 0 Progress Note Due 05/30/25 Precautions Precautions latex allergy OP-PT Subjective Patient Comments Patient Comments Pt reports compliance w/exercises. Still med knee pain and hard to straigthen Knee Goniometric Range of Motion Knee Measured in Degrees Right Flexion Active ( 131 degrees) Extension Active ( 3 degrees) Comments pain both directions Hip Strength Hip Manual Muscle Testing Right Flexion (L2) 4- Good- Extension (S1) 4+ Good+ Abduction 4 Good Adduction 4 Good External Rotation 4- Good- Internal Rotation 4 Good Comments pain add, ER Left Flexion (L2) 5 Normal Extension (S1) 5 Normal Abduction 5 Normal Adduction 5 Normal External Rotation 5 Normal Internal Rotation 5 Normal Knee Strength Knee Manual Muscle Testing Right Flexion (S2) 5 Normal Extension (L3) 4- Good- Comments pain ext Left Flexion (S2) 5 Normal Extension (L3) 5 Normal Ankle/Foot Strength Ankle and Foot Manual Muscle Testing Right Dorsiflexion (L4) 5 Normal Plantarflexion (S1) 5 Normal Comments 20 heel raises w/pain med knee Left Dorsiflexion (L4) 5 Normal Plantarflexion (S1) 5 Normal Comments 20 heel raises Therapeutic Exercises Standing Exercises lunge Side bilateral Equipment Used [place] band around knees Reps/Minutes 10 ea Comments cues knee tracking lat step up Side right Equipment Used 4 in Reps/Minutes 6 stopped d/t pain hip hike Side right Reps/Minutes 8 Comments stopped d/t pain step up Standing Exercise to SL Name Side right Equipment Used 8 in Reps/Minutes 10 Comments cues control down lat lunge Side right Reps/Minutes 6 Comments cues alignment-stopped d/t pain Other Exercises self mob Other Exercise Name 1. fib PA 2. femur PA Side right Reps/Minutes 10 ea Comments quadruped-cues comfortable range Manual Therapy Treatment Consent Patient gave verbal Yes consent for manual treatment Joint Mobilizations tibiofemoral Comments AP tibia and femur c/r; med glide tibia and lat glide femur c/r R patella Direction sup<>inf, med<>lat Grade II Body Position Supine Physical Therapy Assessment Goals strength Short Term Goal (STG Pt will be indep w/HEP ) STG Duration achieved advancing as able Optometry Doctor Goal (LTG) pt will score at least 4+/5 on all BLE MMT in order to allow for greater ease with functional activities. 04/30-improving LTG Duration 06/04 ROM Short Term Goal (STG Pt will have full knee ext to at least 0 to allow for ) improved gait mechanics 04/30-no major change STG Duration 04/26 Optometry Doctor Goal (LTG) Pt will have ROM of R knee equal to that of L knee w/o inc pain to allow pt to do ADLs and stairs w/o inc pain LTG Duration 06/04 activity Short Term Goal (STG Pt will be able to get up from the ground w/o pushing ) on something w/o inc pain to allow her to return to her typical job duties w/o inc pain 04/30-no change STG Duration 05/05 Group Home Goal (LTG) Pt will report being able to resume 3 mile walks on different terrain w/o inc pain 04/30-about 1-2 miles w/moderate pain LTG Duration 06/04 Assessment Summary Assessment Pt is making progrss with strength but cont to have pain in knee medially. She does still have swelling and would benefit from cont skilled PT but may benefit from further imaging or seeing an orthopedic as she does still have significant pain. Physical Therapy Plan Frequency and Duration Frequency of 2x/Week Treatment Duration of 10 treatment (weeks) Plan of Care Start 03/26/25 Date Plan of Care End 06/04/25 Date Therapeutic Interventions Therapeutic Balance Training,Gait Training,Home Exercise Program, Interventions Joint Mobilizations,Manual Therapy,Neuromuscular Re- education,Patient/Caregiver Education,Self-Care/Home Management,Soft Tissue Mobilization,Therapeutic Activities,Therapeutic Exercises Modalities Cold Pack/Ice Massage,Electric Stimulation,Hot Packs Next Visit Focus/Plan Next Note Type Treatment Note Next Visit Plan innominate mobility, STM to quads, knee mobs, work on knee tracking, review HEP, work on hip rotational strength, balance DL activities initially
--- NOTE | 2025-05-13 17:32 | PT.OTN ---
Current Diagnoses Pain in right knee (05/13/25) Physical Therapy Treatment Note PT OP: Lower Back/Lower Extremity Start: 04/09/25 13:07 Freq: Status: Active Protocol: Document 05/13/25 16:15 [facility] (Rec: 05/13/25 17:04 [facility] [id number]) Out-Patient Physical Therapy Visit Information Visit Information Visit Type Treatment Note Visit Start Time 16:20 Visit Stop Time 17:00 Visit Number 7 Number of GARDENER FLORIST Visits 0 Progress Note Due 05/30/25 Precautions Precautions latex allergy OP-PT Subjective Patient Comments Patient Comments Pt reports compliance w/exercises, notes she doesn't know if PT sessions make changes Therapeutic Exercises Supine Exercises SAQ Side right Reps/Minutes 2x10 HS curl Supine Exercise Name bridge on ball w/HS curl Side bilateral Reps/Minutes 10 bridge Supine Exercise Name SL w/opp LE straight Side bilateral Reps/Minutes x3 B no band, 5x R SL w/unga band at hips Comments cues control core Supine Exercise Name DL flex isometric w/DF: Side bilateral Reps/Minutes x30 sec ea Comments cues DF Sidelying Exercises reverse clamshell Side bilateral Resistance unga band Reps/Minutes 8 Comments cues for alignment and no pelvis roll clamshell Side right Equipment Used unga band Reps/Minutes 4 Comments no cues needed today except initially Sitting Exercises HS Sitting Exercise curl Name Side bilateral Resistance unga band Reps/Minutes 5 Comments no cues needed Standing Exercises clamshell Standing Exercise hands on wall Name Side bilateral Equipment Used unga Reps/Minutes 10 Comments cues set up lunge Side bilateral Equipment Used unga band around knees Reps/Minutes 10 ea Comments cues knee tracking sit to stand Standing Exercise squat Name Side bilateral Equipment Used [place] band at knees Reps/Minutes 10 Comments cues inc range stretch Standing Exercise quad Name Side right Reps/Minutes 60 sec sidestep Standing Exercise in mini squat Name Side bilateral Equipment Used [place]ga band around feet Reps/Minutes x 10ft ea Comments min cues toes fwd Manual Therapy Treatment Consent Patient gave verbal Yes consent for manual treatment Soft Tissue Mobilization calf Body Location R Mobilization Type Rolling Intensity/Depth Moderate HS Body Location R med Intensity/Depth Moderate Comments rolling w/active and passive HS stretch Joint Mobilizations tibfib Comments AP fib tibiofemoral Comments AP, distraction and PA Physical Therapy Assessment Goals strength Short Term Goal (STG Pt will be indep w/HEP ) STG Duration achieved advancing as able Accountancy Professor Goal (LTG) pt will score at least 4+/5 on all BLE MMT in order to allow for greater ease with functional activities. 04/30-improving LTG Duration 06/04 ROM Short Term Goal (STG Pt will have full knee ext to at least 0 to allow for ) improved gait mechanics 04/30-no major change STG Duration 04/26 Accountancy Professor Goal (LTG) Pt will have ROM of R knee equal to that of L knee w/o inc pain to allow pt to do ADLs and stairs w/o inc pain LTG Duration 06/04 activity Short Term Goal (STG Pt will be able to get up from the ground w/o pushing ) on something w/o inc pain to allow her to return to her typical job duties w/o inc pain 04/30-no change STG Duration 05/05 Accountancy Professor Goal (LTG) Pt will report being able to resume 3 mile walks on different terrain w/o inc pain 04/30-about 1-2 miles w/moderate pain LTG Duration 06/04 Assessment Summary Assessment Pt did well with exercises with min cues. She is not seeing significant progress w/PT so is set up to see orthopedic next week. At this time, hold PT until after appt but may DC based on appt. Physical Therapy Plan Frequency and Duration Frequency of 2x/Week Treatment Duration of 10 treatment (weeks) Plan of Care Start 03/26/25 Date Plan of Care End 06/04/25 Date Next Visit Focus/Plan Next Note Type Treatment Note Next Visit Plan possible DC, try to work on ROM
--- NOTE | 2025-06-17 15:55 | PT.OPDS ---
Current Diagnoses Pain in right knee (05/13/25) Visit Care Team Role Provider Type TONYA Perales- Attending Provider Advanced Loan Expeditor Family Provider Primary Care Provider Referring Provider Specialty: Family Practice Address: [address] [place] [address], [address] Phone: Fax: Email: [email or web address] Visit Number Visit Number 7 Discharge Summary PT OP: Lower Back/Lower Extremity Start: 04/09/25 13:07 Freq: Status: Active Protocol: Document 06/17/25 15:54 [facility] (Rec: 06/17/25 15:55 [facility] [id number]) Physical Therapy Assessment Goals strength Short Term Goal (STG Pt will be indep w/HEP ) STG Duration achieved advancing as able Adobe Developer Goal (LTG) pt will score at least 4+/5 on all BLE MMT in order to allow for greater ease with functional activities. 04/30-improving LTG Duration 06/04 ROM Short Term Goal (STG Pt will have full knee ext to at least 0 to allow for ) improved gait mechanics 04/30-no major change STG Duration 04/26 Adobe Developer Goal (LTG) Pt will have ROM of R knee equal to that of L knee w/o inc pain to allow pt to do ADLs and stairs w/o inc pain LTG Duration 06/04 activity Short Term Goal (STG Pt will be able to get up from the ground w/o pushing ) on something w/o inc pain to allow her to return to her typical job duties w/o inc pain 04/30-no change STG Duration 05/05 Adobe Developer Goal (LTG) Pt will report being able to resume 3 mile walks on different terrain w/o inc pain 04/30-about 1-2 miles w/moderate pain LTG Duration 06/04 Assessment Summary Assessment Pt made improvements in strength with PT but was still having significant pain and was plateauing. Was encouraged to go to ortho and after follow up with ortho, pt called to cancel further visits as she agreed with PT that she had plateaued. DC to HEP at this time . Physical Therapy Plan Discharge Physical Therapy Discharge Reasons Plateau in Progress
== END 2025-06-18 09:25 | disposition home or self-care (01) ==
LOC: PHYS 16:15
PROVIDERS: Family Provider Nurse Practitioner Family; PCP Nurse Practitioner Family; Referring Provider Nurse Practitioner Family; Visit Provider Nurse Practitioner Family
DX: M25.561 Pain in right knee (principal)
CPT/HCPCS: 97110; 97112; 97140; 97162; 97530; 97535